=== PATIENT | female | born 1975 | race Caucasian/White ===

== ENCOUNTER 2024-09-22 05:12 | Emergency (ER) | payer BC, SELFPAY ==
[2024-09-22] VITALS (8 sets, daily range): BP systolic 152–194; BP diastolic 86–97; BMI 41.6
[2024-09-22 05:54] LABS: % Basophils 0.5 % (0-2); % Eosinophils 1.8 % (0-6); % Immature Granulocytes 0.4 % (0-0.5); % Lymphocytes 19.7 % (20.5-51.1); % Monocytes 5.5 % (1.7-9.3); % Neutrophils 72.1 % (42.2-75.2); Absolute Eosinophils 0.1 10^3/uL (0-0.7); Absolute Lymphocytes 1.6 10^3/uL (1.2-3.4); Absolute Monocytes 0.4 10^3/uL (0.1-0.6); Absolute Neutrophils 5.7 10^3/uL (1.4-6.5); Hematocrit 36.8 % (37.0-47.0); Hemoglobin 12.2 g/dL (12.0-16.0); Mean Corp Hgb Conc. 33.2 g/dL (33.0-37.0); Mean Corpuscular Volume 87.4 fL (81.0-99.0); Mean Platelet Volume 10.6 fL (7.4-10.4); Nucleated Red Blood Cells % 0 %; Platelet Count 283 10^3/uL (130-400); Red Blood Cell Count 4.21 10^6/uL (4.20-5.40); Red Cell Dist. Width 13.3 % (11.5-14.5); White Blood Cell Count 7.9 10^3/uL (4.8-10.8)
[2024-09-22 05:57] LABS: HCG, Serum Qualitative Screen Negative
[2024-09-22 05:59] LABS: ALT (SGPT) 15 U/L (0-35); AST (SGOT) 21 U/L (14-36); Albumin 3.7 g/dl (3.5-5.0); Alkaline Phosphatase 72 U/L (38-126); Blood Urea Nitrogen 24 mg/dl (7-17); Calcium 8.8 mg/dl (8.4-10.2); Carbon Dioxide 23 mmol/L (22-30); Chloride 104 mmol/L (98-107); Glucose 136 mg/dl (70-99); Lipase 63 U/L (23-300); Sodium 136 mmol/L (135-145); Total Bilirubin 0.5 mg/dl (0.2-1.3); Total Protein 6.1 g/dl (6.3-8.2); eGFR > 60.00
[2024-09-22 06:10] LABS: Troponin I < 0.012 ng/ml
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
[2024-09-22] MEDS: TORADOL 15 MG IV (06:59)
[2024-09-22] MEDS: NSS 500 IV (06:59)
--- NOTE | 2024-09-22 07:44 | EDRN ---
this RN saw that the pt was off of the cardiac and Sp02 monitors, this RN entered the pts room and the pt was in the bathroom, the pt ambulated back to the stretcher and stated that she just unhooked herself, the pt was placed back on the cardiac
monitor, Sp02 monitor, and BP cuff, VS WNL, no s/s of distress, the pt denies needing anything at this time, will continue to monitor the pt closely
[2024-09-22 07:46] LABS: Troponin I < 0.012 ng/ml
[2024-09-22 07:53] LABS: COVID-19 Antigen Negative (Negative)
== END 2024-09-22 09:56 | disposition home or self-care (01) ==
LOC: EMR 05:12
PROVIDERS: Student in an Organized Health Care Education/Training Program; EMERGENCY PHYSICIAN Emergency Medicine; FAMILY PHYSICIAN Nurse Practitioner Family
DX: R07.89 Other chest pain (principal); R11.0 Nausea; R42 Dizziness and giddiness; I10 Essential (primary) hypertension; E78.00 Pure hypercholesterolemia, unspecified; Z59.86 Financial insecurity
CPT/HCPCS: 99285; 96374; 96361; 71046; 80053; 83690; 84484; 84703; 85025; 87502; 87811; 93005